=== PATIENT | female | born 1965 | race Asian ===

== ENCOUNTER → 2017-08-19 | Outpatient (CLI) | payer OTHER ==
[~2017-08-19] MED LIST: AMLO2.5T2 PO; BUPIVACAINE MPF 0.5% 30 ML VIAL. ONE; FLUO20CA16 PO; LEVO112T2 PO; LIDOCAINE 1% PF 30 ML VIAL. ONE; OMEP20TA63 PO; OXYC-327 PO; PRAZ2CAP PO; RANI300T3 PO; SUMA50TA3 PO
== END | disposition home or self-care (01) ==
LOC: SURG 08:45
PROVIDERS: ATTEND Anesthesiology Pain Medicine
DX: M17.0 Bilateral primary osteoarthritis of knee (principal); I10 Essential (primary) hypertension; G47.33 Obstructive sleep apnea (adult) (pediatric); K21.9 Gastro-esophageal reflux disease without esophagitis; E07.9 Disorder of thyroid, unspecified
CPT/HCPCS: 64450; 99213; J2001; J3490

== ENCOUNTER → 2017-08-27 | Outpatient (CLI) | payer OTHER ==
[~2017-08-27] MED LIST changes: -AMLO2.5T2 PO; -FLUO20CA16 PO; -LEVO112T2 PO; -OMEP20TA63 PO; -OXYC-327 PO; -PRAZ2CAP PO; -RANI300T3 PO; -SUMA50TA3 PO
== END | disposition home or self-care (01) ==
LOC: SURG 09:37
PROVIDERS: ATTEND Anesthesiology Pain Medicine
DX: M17.0 Bilateral primary osteoarthritis of knee (principal); Z87.11 Personal history of peptic ulcer disease
CPT/HCPCS: 99213; J2001; J3490

== ENCOUNTER → 2017-09-23 | Outpatient (CLI) | payer OTHER ==
[~2017-09-23] MED LIST changes: +AMLO2.5T2 PO; +BUPIVACAINE MPF 0.25% 10 ML VIAL. ONE; -BUPIVACAINE MPF 0.5% 30 ML VIAL. ONE; +DEXAMETHASONE SOD PHOS 4 MG/ML VIAL ONE; +FLUO20CA16 PO; +IV RINGERS SOLUTION,LACTATED 1,000 ML IV SCH; +LEVO112T2 PO; +MIDAZOLAM HCL PF 2 MG/2 ML VIAL. ONE; +OMEP20TA63 PO; +OXYC-327 PO; +PRAZ2CAP PO; +RANI300T3 PO; +SUMA50TA3 PO; +oxyCODONE/APAP 7.5/325 1 TAB TABLET PO ONE
[2017-09-23 10:09] VITALS: BP 174/105
== END ==
LOC: SURG 07:56
PROVIDERS: ATTEND Anesthesiology Pain Medicine
DX: M19.072 Primary osteoarthritis, left ankle and foot (principal); I10 Essential (primary) hypertension; M19.90 Unspecified osteoarthritis, unspecified site; Z98.890 Other specified postprocedural states; Z88.2 Allergy status to sulfonamides
CPT/HCPCS: 64640; J1100; J2001; J2250; J3010; J3490; J7120; 99152

== ENCOUNTER → 2017-11-12 | Outpatient (CLI) | payer OTHER ==
[2017-09-23 10:09] VITALS: BP 174/105
[~2017-11-12] MED LIST changes: -BUPIVACAINE MPF 0.25% 10 ML VIAL. ONE; -DEXAMETHASONE SOD PHOS 4 MG/ML VIAL ONE; -IV RINGERS SOLUTION,LACTATED 1,000 ML IV SCH; -LIDOCAINE 1% PF 30 ML VIAL. ONE; -MIDAZOLAM HCL PF 2 MG/2 ML VIAL. ONE; -oxyCODONE/APAP 7.5/325 1 TAB TABLET PO ONE
--- NOTE | 2017-11-12 15:31 | RAD ---
DATE: 11/12/2017 EXAM: DIGITAL DIAGNOSTIC RT, BREAST RIGHT HISTORY: Suspicious screening study COMPARISON: 10/13/2017, 04/27/2016 10/26/2014 This study was interpreted with the benefit of Computerized Aided Detection (CAD). The breast parenchyma is heterogeneously dense, which could reduce sensitivity of mammography. Breast parenchyma level C. FINDINGS: Additional views of the right breast including straight mediolateral and spot compression views were obtained and correlated with the screening images. There is a grouping of microcalcifications at the 11:30 location in the right breast which has progressed slightly since 2016. They do not demonstrate layering in the lateral projection. Some of these are smooth and rounded while others are slightly granular in character. No branching or linear type microcalcifications are seen. No associated mass is evident in this region. Slightly more medially in the right breast at the 12:00 location there is a cluster of smooth more coarse calcifications which have shown no significant change since 2016. These appear to be related to a tiny nodule. The features suggest a small sclerotic fibroadenoma. Right breast ultrasound, 11/12/2017: A targeted ultrasound exam of the right breast was performed centered at the 11-12:00 location. Heterogeneous fibroglandular shadows are present. A tiny 3 mm rounded hypoechoic nodule is identified at the 11:00 location approximately 3.5 cm in the nipple. There are low level internal echoes. No definite internal calcification is seen. There appears to be faint posterior acoustic shadowing. No other abnormality is seen in this region. IMPRESSION: 1. 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 2. Additional separate microcalcifications have progressed slightly since 2016. They have a fairly benign appearance. 3. 3 mm nodule identified sonographically. It is unclear whether this corresponds to the presumed fibroadenoma. 4. Follow-up right mammography and ultrasound in 6 months is suggested. BI-RADS CATEGORY: 3 PROBABLY BENIGN FINDING(S)-SHORT INTERVAL FOLLOW-UP SUGGESTED RECOMMENDED FOLLOW-UP: 6M 6 MONTH FOLLOW-UP PQRS compliance statement: Patient information was entered into a reminder system with a target due date for the next mammogram. Mammography is a sensitive method for finding small breast cancers, but it does not detect them all and is not a substitute for careful clinical examination. A negative mammogram does not negate a clinically suspicious finding and should not result in delay in biopsying a clinically suspicious abnormality. "Our facility is accredited by the [employer] Mammography [employer]."
== END | disposition home or self-care (01) ==
LOC: MAMMO 10-27 08:48
PROVIDERS: ATTEND Nurse Practitioner Family
DX: R92.8 Other abnormal and inconclusive findings on diagnostic imaging of breast (principal)
CPT/HCPCS: 76641; 77065

== ENCOUNTER → 2018-04-14 | Outpatient (CLI) | payer OTHER ==
[2017-09-23 10:09] VITALS: BP 174/105
== END | disposition home or self-care (01) ==
LOC: SURG 10:26
PROVIDERS: ATTEND Anesthesiology Pain Medicine
DX: M25.562 Pain in left knee (principal); G47.33 Obstructive sleep apnea (adult) (pediatric); E03.9 Hypothyroidism, unspecified; M19.90 Unspecified osteoarthritis, unspecified site; G89.4 Chronic pain syndrome; Z79.899 Other long term (current) drug therapy
CPT/HCPCS: 99213

== ENCOUNTER → 2019-07-20 | Outpatient (CLI) | payer OTHER ==
[~2019-07-20] MED LIST changes: -OXYC-327 PO; +OXYC1TAB19 PO
[2019-07-20 13:52] VITALS: BP 152/94
== END | disposition home or self-care (01) ==
LOC: SURG 13:24
PROVIDERS: ATTEND Anesthesiology Pain Medicine
DX: M25.569 Pain in unspecified knee (principal); M19.90 Unspecified osteoarthritis, unspecified site; G89.4 Chronic pain syndrome; Z79.899 Other long term (current) drug therapy
CPT/HCPCS: 99213; G0463

== ENCOUNTER → 2019-08-28 | Outpatient (CLI) | payer OTHER ==
[2019-07-20 13:52] VITALS: BP 152/94
--- NOTE | 2019-08-28 10:38 | RAD ---
EXAM: Bilateral knees, 3 views. HISTORY: Pain. COMPARISON: None. FINDINGS: 3 views of both knees are obtained. There is no acute fracture, dislocation or subluxation. There is mild bilateral medial compartment joint space narrowing. There is a track lane within the proximal left tibial metaphysis suggesting prior cruciate ligament surgery. There is trace joint fluid without a significant joint effusion. IMPRESSION: 1. Mild bilateral medial compartment osteoarthritis. 2. Findings suggest a prior left cruciate ligament surgery. Electronically signed by: Marietta Lisa MD (08/28/2019 10:35 AM) [id number]
== END ==
LOC: RAD 09:23
PROVIDERS: ATTEND Physician Assistant
DX: M17.0 Bilateral primary osteoarthritis of knee (principal)
CPT/HCPCS: 73562